=== PATIENT | female | born 1945 | race Caucasian/White ===

== ENCOUNTER 2017-02-02 09:39 | Emergency (ER) | payer MEDICARE, BC ==
[~2017-02-02] VITALS: Ht 157.5 cm; Wt 92.0 kg
[~2017-02-02 09:39] MED LIST: AMLO5TAB96 PO; B-COTAB41 PO; CALC600T34 PO; FOLI1TAB PO; GLUCTAB PO; INFL100P IV; LACTCAP7 PO; LOSA100T3 PO; MELO15TA2 PO; METH2.5 SC; METO100T PO; NEXI40CA PO; NIAC500T18 PO; NORC7.5T PO; SYNT88TA PO; VITA100017 PO; VITA500015 PO
[2017-02-02 09:40] VITALS: BP 186/84; PULSE 54; RESP 12; TEMP 98.1; O2SAT 97
--- NOTE | 2017-02-02 10:12 | PD ---
HPI Chief Complaint: Headache Time Seen by Provider: 10:06 Travel History International Travel<30 days: No Contact w/Intl Traveler<30days: No Traveled to known affect area: No History of Present Illness HPI C/O HEADACHE FOR 3 DAYS, SOME NAUSEA, SEEN AT [facility] YESTERDAY WHERE SHE HAD CT ABD/PELVIS, CARDIAC BLOODWORK AND OTHER BLOODWORK WHICH WAS NORMAL...BUT SHE FELT UNHAPPY BECAUSE THEY DID NOT ADDRESS HER HEADACHE. PRIOR TO ARRIVING SHE TOOK ONE VICODIN AND HER BP MEDS (WHICH SHE HAS NOT TAKEN FOR LAST 3 DAYS) ...PATIENT TOOK HER BP MEDS THIS AM BECAUSE OF NOTING HIGH BP THIS AM PCP DR ALF MICHELE Past Medical History Arthritis: Yes (RHEUMATOID X 35 YRS) Anxiety: Yes Heart Rhythm Problems: No Cancer: No Cardiac Catheterization: No Cardiovascular Problems: Yes (AORTIC LEAK) High Cholesterol: No Chest Pain: No Congestive Heart Failure: No Cerebrovascular Accident: No Diabetes: Yes Patient Takes Glucophage: Yes Diminished Hearing: No Endocrine: Yes Gastrointestinal Disorders: Yes GERD: Yes Genitourinary: No Headaches: Yes Hepatitis: No Hiatal Hernia: No Hypertension: Yes Immune Disorder: Yes (R/A) Kidney Stones: Yes (1970) Musculoskeletal: Yes (R/A, NECK, SHOULDERS MOST JOINTS ) Neurologic: No Psychiatric: Yes (ANXIETY) Reproductive: No Respiratory: No Migraines: No Myocardial Infarction: No Seizures: No Sleep Apnea: No (denies) Thyroid Disease: Yes Ulcer: No Tubal Ligation: Yes Past Surgical History AICD: No Appendectomy: No Cholecystectomy: No Coronary Artery Bypass Graft: No Genitourinary Surgery: Yes (CYSTOSCOPY AND STONE MANIPULATION) Gynecologic Surgery: Yes (BSO, INO SALINAS,MARCOS,D&C,TL) Hysterectomy: Yes Joint Replacement: Yes (BILAT KNEES) Pacemaker: No Social History Alcohol Use: Yes (occas) Tobacco Use: No Substance Use: No Allergies-Medications (Allergen,Severity, Reaction): Coded Allergies: latex (Unverified Allergy, Severe, CONTACT DERMATITIS, 02/02/17) adhesive (Unverified Allergy, Intermediate, ITCHY RASH, 02/02/17) acetaminophen (Unverified Allergy, Mild, ITCHING, 02/02/17) oxycodone (Unverified Allergy, Mild, ITCHING, 02/02/17) povidone-iodine (Unverified Allergy, Mild, CONTACT DERMATITIS, 02/02/17) Reported Meds & Prescriptions Reported Meds & Active Scripts Active Reported Xopenex Hfa 15 GM Inh (Levalbuterol 15 GM Inh) 45 Mcg/Act Aer 2 Puff INH Q6HR Shake well before using. (1 puff = 45 mcg) Vitamin D-1000 (Cholecalciferol) 1,000 Unit Tab 2,000 Units PO DAILY Vitamin C (Ascorbic Acid) 250 Mg Chew 1,000 Mg CHEW DAILY Sucralfate 1 Gram Tab 1 Gm PO BID on empty stomach Probiotic (Saccharomyces Boulardii) 250 Mg Cap 250 Mg PO BID Preservision Areds (Multiple Vitamins W/ Minerals) 1 Tab 1 Tab PO DAILY Orencia Inj (Abatacept Inj) 125 Mg/Ml Syr 250 Mg SQ Q30D NEB Rupert (Hydrocodone-Acetaminophen) 5-325 mg Tab 1 Tab PO Q6H PRN Niacin 500 Mg Tab 500 Mg PO DAILY Metoprolol Tartrate 100 Mg Tab 100 Mg PO DAILY Metformin (Metformin HCl) 500 Mg Tab 500 Mg PO BIDPC Losartan-Hydrochlorothiazide 100-25 Mg Tab 1 Tab PO DAILY Levothyroxine (Levothyroxine Sodium) 88 Mcg Tab 88 Mcg PO DAILY Folic Acid 1 Mg Tablet 2 Tab PO DAILY Esomeprazole DR 40 Mg Capdr 40 Mg PO DAILY Diazepam 5 Mg Tab 5 Mg PO TID PRN Celebrex (Celecoxib) 200 Mg Cap 200 Mg PO DAILY Aspirin 81 Mg Chew 81 Mg CHEW DAILY Albuterol Neb (Albuterol Sulfate) 2.5 Mg/3 Ml Neb 2.5 Mg NEB QID NEB PRN Remicade (Infliximab) 100 Mg Inj 0 IV DIRECTED Review of Systems Except as stated in HPI: all other systems reviewed are Neg HENT: Positive: Headaches Physical Exam Narrative GENERAL: SKIN: Warm and dry. HEAD: Atraumatic. Normocephalic. EYES: Pupils equal and round. No scleral icterus. No injection or drainage. ENT: No nasal bleeding or discharge. Mucous membranes pink and moist. NECK: Trachea midline. No JVD. CARDIOVASCULAR: Regular rate and rhythm. RESPIRATORY: No accessory muscle use. Clear to auscultation. Breath sounds equal bilaterally. GASTROINTESTINAL: Abdomen soft, non-tender, nondistended. MUSCULOSKELETAL: Extremities without clubbing, cyanosis, or edema. No obvious deformities. NEUROLOGICAL: Awake and alert. No obvious cranial nerve deficits. Motor grossly within normal limits. Five out of 5 muscle strength in the arms and legs. Normal speech. PSYCHIATRIC: Appropriate mood and affect; insight and judgment normal. Data Data Last Documented VS Vital Signs Date Time Temp Pulse Resp B/P (MAP) Pulse Ox O2 Delivery O2 Flow Rate FiO2 02/02/17 12:21 02/02/17 11:21 50 18 94 Room Air 02/02/17 09:[address] Brain W/O Iv Contrast(Rout) (02/02/17 10:06) Ondansetron Inj (Zofran Inj) (02/02/17 10:45) Morphine Inj (Morphine Inj) (02/02/17 10:45) Clonidine (Catapres) (02/02/17 10:45) MDM Medical Decision Making Medical Screen Exam Complete: Yes Emergency Medical Condition: Yes Medical Record Reviewed: Yes Differential Diagnosis ICH V SINUSITIS V TENSION BEACH Narrative Course ON REEVALUATION PAIN IS RESOLVED AND BP IMPROVED PURELY WITH PAIN CONTROL DOWN TO A SYSTOLIC IN 130-140'S THEREFORE NO ADDITIONAL BP MEDS NEEDED. ALL FINDINGS D/W PATIENT AND AT BEDSIDE, THEY BOTH VOICED UNDERSTANDING AND WILL F/U WITH HER PCP Diagnosis Primary Impression: HEADACHE Additional Impression: HYPERTENSION Disposition: 01 DISCHARGE HOME Condition: Stable Mamadou Perez MD Feb 02, 2017 10:12
[2017-02-02] MEDS ORDERED: ABAT1INJ SQ (10:21)
[2017-02-02] MEDS ORDERED: NIAC500T5 PO (10:21)
[2017-02-02] MEDS ORDERED: XOPEAER4 INH (10:21)
[2017-02-02] MEDS ORDERED: METO100T PO (10:21)
[2017-02-02] MEDS ORDERED: NORC5TAB PO (10:21)
[2017-02-02] MEDS ORDERED: VITA1000 PO (10:21)
[2017-02-02] MEDS ORDERED: ESOM1CAP16 PO (10:21)
[2017-02-02] MEDS ORDERED: LEVO88TA2 PO (10:21)
[2017-02-02] MEDS ORDERED: ASPI81CH CHEW (10:21)
[2017-02-02] MEDS ORDERED: LOSA100T2 PO (10:21)
[2017-02-02] MEDS ORDERED: FOLI1TAB6 PO (10:21)
[2017-02-02] MEDS ORDERED: METF500T PO (10:21)
[2017-02-02] MEDS ORDERED: DIAZ5TAB PO (10:21)
[2017-02-02] MEDS ORDERED: OCUVTAB4 PO (10:21)
[2017-02-02] MEDS ORDERED: CELE200C PO (10:21)
[2017-02-02] MEDS ORDERED: SACC1CAP3 PO (10:21)
[2017-02-02] MEDS ORDERED: ALBU0.08 NEB (10:21)
[2017-02-02] MEDS ORDERED: SUCR1TAB PO (10:21)
[2017-02-02] MEDS ORDERED: VITA250C3 CHEW (10:21)
[2017-02-02 10:30] VITALS: BP 179/79; PULSE 53; RESP 17; O2SAT 97
[2017-02-02 10:43] VITALS: BP 154/72; PULSE 52
[2017-02-02] MEDS ORDERED: ONDANSETRON HCL 4 MG/2 ML VIAL IV PUSH ONE (10:45)
[2017-02-02] MEDS ORDERED: cloNIDine HCL 0.1 MG TAB PO ONE (10:45)
[2017-02-02] MEDS ORDERED: MORPHINE SULFATE 2 MG/ML INJ IV PUSH ONE (10:45)
[2017-02-02 11:21] VITALS: BP 144/69; PULSE 50; RESP 18; O2SAT 94
--- NOTE | 2017-02-02 11:38 | RADRPT ---
EXAM DATE/TIME: 02/02/2017 10:57 [facility] COMPARISON: No previous studies available for comparison. INDICATIONS : Dizziness. RADIATION DOSE: 56.35 CTDIvol (mGy) MEDICAL HISTORY : [place] SURGICAL HISTORY : None. ENCOUNTER: Initial ACUITY: 1 day PAIN SCALE: 3/10 LOCATION: cranial TECHNIQUE: Multiple contiguous axial images were obtained of the head. Using automated exposure control and adj ustment of the mA and/or kV according to patient size, radiation dose was kept as low as reasonably a chievable to obtain optimal diagnostic quality images. DICOM format image data is available electro nically for review and comparison. FINDINGS: CEREBRUM: The ventricles are normal for age. No evidence of midline shift, mass lesion, hemorrhage or acute in farction. No extra-axial fluid collections are seen. POSTERIOR FOSSA: The cerebellum and brainstem are intact. The 4th ventricle is midline. The cerebellopontine angle i s unremarkable. EXTRACRANIAL: The visualized portion of the orbits is intact. SKULL: The calvaria is intact. No evidence of skull fracture. CONCLUSION: 1. No acute intracranial abnormality is identified. Barry Mcneil MD on February 02, 2017 at 11:35 Board Certified Radiologist. This report was verified electronically.
== END 2017-02-02 12:29 | disposition home or self-care (01) ==
LOC: NEPC 09:39
DX: R51 Headache (principal); I10 Essential (primary) hypertension; R11.0 Nausea; E11.9 Type 2 diabetes mellitus without complications
CPT/HCPCS: 70450; 96374; 96375; 99285; J2270; J2405